=== PATIENT | female | born 1990 ===

== ENCOUNTER 2017-10-04 20:19 | Emergency (ER) | payer OTHER ==
[2017-10-04 21:35] VITALS: BP 117/70; PULSE 90; RESP 16; TEMP 99; O2SAT 100
[2017-10-04] MEDS ORDERED: Sodium Chloride 0.9% 1,000 ML IV STA (22:15)
--- NOTE | 2017-10-04 22:17 | ED PDOC ---
HPI: Female Pain Time Seen by Provider: 10/04/17 21:50 Chief Complaint (Nursing): Female Genitourinary Chief Complaint (Provider): Pelvic pain History Per: Patient History/Exam Limitations: no limitations Onset/Duration Of Symptoms: Days (2) Current Symptoms Are (Timing): Still Present Additional Complaint(s): Pt. with pelvic pain for 2 days. No vaginal bleeding, weakness, headaches, dizziness, back pain, dysuria. Preg. Past Medical History Reviewed: Nursing Documentation, Vital Signs Vital Signs: Last Vital Signs Temp 99.0 F 10/04/17 21:32 Pulse 90 10/04/17 21:32 Resp 16 10/04/17 21:32 BP 117/70 10/04/17 21:32 Pulse Ox 100 10/04/17 21:32 - Medical History PMH: No Chronic Diseases - Surgical History Surgical History: No Surg Hx - Family History Family History: States: Unknown Family Hx - Allergies Allergies/Adverse Reactions: Allergies Allergy/AdvReac Type Severity Reaction Status Date / Time latex Allergy RASH Verified 10/04/17 21:32 Review of Systems ROS Statement: Except As Marked, All Systems Reviewed And Found Negative Genitourinary Female: Positive for: Pelvic Pain Physical Exam - Reviewed Nursing Documentation Reviewed: Yes Vital Signs Reviewed: Yes - Physical Exam Appears: Positive for: Non-toxic, No Acute Distress Head Exam: Positive for: ATRAUMATIC, NORMAL INSPECTION, NORMOCEPHALIC Skin: Positive for: Normal Color, Warm, DRY Eye Exam: Positive for: EOMI, Normal appearance, PERRL ENT: Positive for: Normal ENT Inspection Neck: Positive for: Normal, Painless ROM Cardiovascular/Chest: Positive for: Regular Rate, Rhythm Respiratory: Positive for: CNT, Normal Breath Sounds Gastrointestinal/Abdominal: Positive for: Bowel Sounds, Soft, Tenderness (mild tender across lower pelvic) Back: Positive for: Normal Inspection Extremity: Positive for: Normal ROM Neurologic/Psych: Positive for: Alert, Oriented - Laboratory Results Result Diagrams: 10/04/17 22:35 10/04/17 22:35 - ECG O2 Sat by Pulse Oximetry: 100 Pulse Ox Interpretation: Normal - CT Scan/US US Other Rad Studies (CT/US): Read By Radiologist Other Rad Interpretation: SLIUP - Progress ED Course And Treament: 2315: Stable. AAOx3. Pain free. Tolerated PO. Fu with pcp. Disposition - Clinical Impression Clinical Impression: Threatened - Patient ED Disposition Is Patient to be Admitted: No Counseled Patient/Family Regarding: Studies Performed, Diagnosis, Need For Followup - Disposition [facility] - [facility]17 Disposition: Routine/Home Disposition Time: 23:16 Condition: STABLE Additional Instructions: Return if not better in 3 days. Instructions: Threatened Miscarriage Forms: [employer] (Ukrainian)
[2017-10-04 22:38] LABS: BASO # 0.1 K/uL (0.0-0.2); BASO % 0.5 % (0.0-2.0); EOS # 0.1 K/uL (0.0-0.7); EOS % 0.5 % (0.0-4.0); HEMOGLOBIN 12.5 g/dL (12.0-16.0); LYMPH # 1.9 K/uL (1.0-4.3); LYMPH % 19.8 % (20.0-40.0); MEAN CELL VOLUME 89.7 fl (81.0-99.0); MEAN CORPUSCULAR HEMOGLOBIN 29.5 pg (27.0-31.0); MEAN CORPUSCULAR HGB CONC 32.9 g/dL (33.0-37.0); MEAN PLATELET VOLUME 9.6 fl (7.2-11.7); MONO # 0.7 K/uL (0.0-0.8); MONO % 6.9 % (0.0-10.0); NEUT # 6.9 K/uL (1.8-7.0); NEUT % 72.3 % (50.0-75.0); NRBC % 0.1 % (0.0-0.0); RBC 4.24 Mil/uL (3.80-5.20); RED CELL DISTRIBUTION WIDTH 14.2 % (11.5-14.5); WHITE BLOOD COUNT 9.6 K/uL (4.8-10.8)
[2017-10-04 22:48] LABS: ALB/GLOB RATIO 1.1 (1.0-2.1); ALBUMIN 3.6 g/dL (3.5-5.0); ALT/SGPT 30 U/L (9-52); AST/SGOT 18 U/L (14-36); BLOOD UREA NITROGEN 12 mg/dl (7-17); GFR AFRICAN-AMERICAN > 60; GFR NON-AFRICAN AMERICAN > 60
--- NOTE | 2017-10-05 00:07 | US ---
EXAM: US First Trimester, Transabdominal CLINICAL HISTORY: 27 years old, female; Pain; Other: Abd pain; Gestational age or lmp: 07/09/17; ; Additional info: Preg and pain TECHNIQUE: Real-time transabdominal obstetrical ultrasound of the maternal pelvis and a first trimester with image documentation. COMPARISON: No relevant prior studies available. FINDINGS: Gestation: Single live intrauterine gestation. heart rate of 167 beats per minute. [place]-rump length of 5.4 cm, correlating with gestational age of 12 weeks 0 days. Uterus/cervix: No subchorionic hemorrhage. No cervical dilatation or effacement. Ovaries: RIGHT ovary: Not visualized. LEFT ovary: Normal. No adnexal masses. Free fluid: No significant free fluid. IMPRESSION: 1. Single live intrauterine gestation.
== END 2017-10-05 00:46 | disposition home or self-care (01) ==
LOC: H.ER 20:19
DX: O20.0 Threatened abortion (principal)
CPT/HCPCS: 76815; 80053; 81025; 84702; 85025; 86850; 86900; 96360; 99282; J7040

== ENCOUNTER 2018-02-01 14:18 | Emergency (ER) | payer MEDICAID ==
[2018-02-01 14:26] VITALS: O2SAT 98
[2018-02-01 14:27] VITALS: BMI 28.3
--- NOTE | 2018-02-01 14:52 | ED PDOC ---
HPI: Skin/Bite Injury Time Seen by Provider: 02/01/18 14:35 Chief Complaint (Nursing): Bite Chief Complaint (Provider): Bite History Per: Patient History/Exam Limitations: no limitations Onset/Duration Of Symptoms: Days (x2) Current Symptoms Are (Timing): Still Present Additional Complaint(s): 27 year old female, currently 28 weeks , presents to the emergency department for an evaluation of a cat bite to her right hand, onset 2 days ago. Patient was evaluated at her PSYCHOLOGIST RESEARCH [facility]ISTANT ([facility]), prior to arrival, whom feels that wound is not infected but recommended ED visit to confirm. Patient denies any fever, chills, pain or further complaints. PSYCHOLOGIST RESEARCH ASSISTANT: Hawa Hernandez MD Past Medical History Reviewed: Historical Data, Nursing Documentation, Vital Signs Vital Signs: Last Vital Signs Temp 97.1 F L 02/01/18 14:24 Pulse 90 02/01/18 14:24 Resp BP 101/62 02/01/18 14:24 Pulse Ox 98 02/01/18 16:10 - Medical History PMH: No Chronic Diseases - Surgical History Surgical History: No Surg Hx - Family History Family History: States: Unknown Family Hx - Home Medications Home Medications: Ambulatory Orders Medication Instructions Recorded Amoxicillin/Clavulanate [Augmentin 1 tab PO BID #20 tab 02/01/18 875 MG-125 MG] - Allergies Allergies/Adverse Reactions: Allergies Allergy/AdvReac Type Severity Reaction Status Date / Time latex Allergy RASH Verified 02/01/18 14:26 Review of Systems ROS Statement: Except As Marked, All Systems Reviewed And Found Negative Constitutional: Negative for: Fever, Chills Musculoskeletal: Positive for: Other (right hand bite jonathan). Negative for: Hand Pain (right) Physical Exam - Reviewed Nursing Documentation Reviewed: Yes Vital Signs Reviewed: Yes - Physical Exam Appears: Positive for: Well, Non-toxic, No Acute Distress Head Exam: Positive for: ATRAUMATIC, NORMAL INSPECTION, NORMOCEPHALIC Skin: Positive for: Normal Color. Negative for: Rash Eye Exam: Positive for: Normal appearance ENT: Positive for: Normal ENT Inspection Neck: Positive for: Normal Cardiovascular/Chest: Positive for: Regular Rate, Rhythm Respiratory: Positive for: Normal Breath Sounds. Negative for: Respiratory Distress Gastrointestinal/Abdominal: Positive for: Normal Exam, Soft, Other (gravid). Negative for: Tenderness Extremity: Positive for: Normal ROM (right wrist and digits), Other (4cm ecchymosis and [3] less than 1/2cm tiny linear abrasions to right posterior hand ). Negative for: Swelling (or surrounding erythema to right hand) Neurologic/Psych: Positive for: Alert (x3), Oriented. Negative for: Motor/ Sensory Deficits - ECG O2 Sat by Pulse Oximetry: 98 (RA) Pulse Ox Interpretation: Normal Medical Decision Making Medical Decision Making: Time: 1455 --Call made out to Dr. Hernandez to discuss Rabies vaccine. Recomended calling animal control and pharmacy to see if vaccine and immunoglobulin are safe in pregnacy. Discussed with Pharmacy - Cat C Discussed with Dr. Sifuentes. Pt made aware of risk of rabies and that rabies is fatal. Also discussed cat c medications and vaccination with patient. Pt understands risk/benefit of vaccine and does not want the vaccine at this time. Scribe Attestation: Documented by Zari Wharton, acting as a scribe for Amy Arthur Pa-C. Provider Scribe Attestation: All medical record entries made by the Scribe were at my direction and personally dictated by me. I have reviewed the chart and agree that the record accurately reflects my personal performance of the history, physical exam, medical decision making, and the department course for this patient. I have also personally directed, reviewed, and agree with the discharge instructions and disposition. Disposition - Clinical Impression Clinical Impression: Animal bite wound - Patient ED Disposition Is Patient to be Admitted: No Counseled Patient/Family Regarding: Diagnosis, Need For Followup, Rx Given - Disposition Disposition: Routine/Home Disposition Time: 16:30 Condition: STABLE Prescriptions: Amoxicillin/Clavulanate [Augmentin 875 MG-125 MG] 1 tab PO BID #20 tab Instructions: Animal Bites (DC) Forms: [employer] (Mongolian)
[2018-02-01 18:57] VITALS: BP 120/70; PULSE 88; RESP 20; TEMP 98
== END 2018-02-01 16:32 | disposition home or self-care (01) ==
LOC: H.ER 14:18
DX: S61.451A Open bite of right hand, initial encounter (principal); W55.01XA Bitten by cat, initial encounter; Y92.89 Other specified places as the place of occurrence of the external cause; Z3A.28 28 weeks gestation of pregnancy

== ENCOUNTER 2018-04-07 21:34 | Emergency (ER) | payer MEDICAID ==
[2018-04-07 22:00] VITALS: BMI 29.9
--- NOTE | 2018-04-07 22:25 | OBHP ---
Datetime: 04/07/2018 22:12 IP Adm Impression: Term, intrauterine ; No Active Labor IP Admit Plan: Observation/Evaluation; Discharge home Admit Comment, IP Provider: 27yo at 37w4d reports here today c/o pelvic cramps which started @ 3pm. She denies any VB or LOF. has vandana uncomplicated. She reports good movements. PMHx: Nil of note O: afebrile Heart: RRR Chest: CTA B/L Renal anles: Nontender B/L FHR: category 1 TOCO: None SVE: Closed/ posterior, vertex felt Assessment: IUP at 37wks No active labor NST- Reactive. Plan Discharge Home Labor instructions given Follow up with OB clinic within 1 week Pelvic Type - PN: Adequate Extremities - PN: Normal Abdomen - PN: Normal Back - PN: Normal Breast - PN: Normal Lungs - PN: Normal Heart - PN: Normal Thyroid - PN: Normal Neurologic - PN: Normal HEENT - PN: Normal General - PN: Normal Presentation-Admit: Vertex FHR - Baseline A Provider: 130 Membranes, Provider: Intact Contraction Comments Provider: none Gestation - Est Wks by US: 37.4 EGA AdmitDate IP: 37.4 IP Chief Complaint: Maternal discomfort NICHD Variability Prov Fetus A: Moderate 6-25bpm NICHD Accel Fetus A IP Provider: 15X15 FHR Category Provider Fetus A: Category I NICHD Decel Fetus A IP Provider: None Dilatation, Provider: 0 Effacement, Provider: 10 Station, Provider: -3 Genitourinary Exam: Normal DTRs - PN: Normal
[2018-04-07] MEDS ORDERED: Lactated Ringer's 1,000 ML IV ONE (22:54)
[2018-04-07 23:54] LABS: BASO % 0.3 % (0.0-2.0); EOS % 0.1 % (0.0-4.0); HEMOGLOBIN 11.5 g/dL (12.0-16.0); LYMPH # 1.4 K/uL (1.0-4.3); LYMPH % 9.4 % (20.0-40.0); MEAN CELL VOLUME 85.2 fl (81.0-99.0); MEAN CORPUSCULAR HEMOGLOBIN 27.6 pg (27.0-31.0); MEAN CORPUSCULAR HGB CONC 32.4 g/dL (33.0-37.0); MEAN PLATELET VOLUME 10.9 fl (7.2-11.7); MONO % 6.9 % (0.0-10.0); NEUT # 12.2 K/uL (1.8-7.0); NEUT % 83.3 % (50.0-75.0); NRBC % 0.1 % (0.0-0.0); PLATELET COUNT 222 K/uL (130-400); RBC 4.18 Mil/uL (3.80-5.20); RED CELL DISTRIBUTION WIDTH 13.4 % (11.5-14.5); WHITE BLOOD COUNT 14.6 K/uL (4.8-10.8)
[2018-04-08 00:04] LABS: ALBUMIN 3.5 g/dL (3.5-5.0); AMYLASE 93 U/L (30-110); CALCIUM 8.8 mg/dL (8.4-10.2); GFR NON-AFRICAN AMERICAN > 60; LIPASE 76 U/L (23-300)
[2018-04-08 00:09] LABS: ALT/SGPT 22 U/L (9-52); AST/SGOT 34 U/L (14-36); BLOOD UREA NITROGEN 10 mg/dl (7-17)
[2018-04-08 00:53] LABS: BASOPHIL 1 % (0-2); LYMPHOCYTE 12 % (20-50); MONOCYTE 2 % (0-10); NEUTROPHIL 85 % (42-75); PLATELET ESTIMATE NORMAL (NORMAL); TOTAL CELLS COUNTED 100
[2018-04-08 05:38] VITALS: BP 96/54; PULSE 90; O2SAT 100
== END 2018-04-08 01:30 | disposition home or self-care (01) ==
LOC: H.EROB2 21:34
DX: O26.93 Pregnancy related conditions, unspecified, third trimester (principal); R10.2 Pelvic and perineal pain; O47.1 False labor at or after 37 completed weeks of gestation; Z3A.37 37 weeks gestation of pregnancy
CPT/HCPCS: 80053; 82150; 83690; 85025; 96361; 96374; 99283; J2405; J7120

== ENCOUNTER 2018-04-24 14:50 | Emergency (ER) | payer MEDICAID ==
[2018-04-24 20:17] VITALS: BP 112/73; PULSE 96; RESP 18; TEMP 98.4; O2SAT 99
== END 2018-04-24 16:00 | disposition home or self-care (01) ==
LOC: H.EROB2 14:50
DX: O76 Abnormality in fetal heart rate and rhythm complicating labor and delivery (principal); Z3A.40 40 weeks gestation of pregnancy; O48.0 Post-term pregnancy

== ENCOUNTER 2018-04-29 18:48 | Inpatient (IN) | payer MEDICAID ==
[2018-04-29] MEDS ORDERED: Nalbuphine HCL 10 mg/ml Ampule IVP PRN (19:43)
--- NOTE | 2018-04-29 19:53 | OBADHP ---
Datetime: 04/29/2018 19:48 Admit Comment, IP Provider: Patient is a @ 39.5 wks, SROM at 3 cm. Patient denies antepartum is sues, no medical problems, no previous surgeries, no allergies. VE= grossly ruptured, /-3 FHR= 135 mod yadira,+accels, no decels TOCO = ctxning q 5 mins A/P 1. patient grossly ruptured, 3 cm. Admit pt to unit, IVF, CBC, type and screen 2. Cytotec for further cervical ripening 3. CEFM and TOCO Pelvic Type - PN: Adequate Extremities - PN: Normal Abdomen - PN: Normal Back - PN: Normal Breast - PN: Normal Lungs - PN: Normal Heart - PN: Normal Thyroid - PN: Normal Neurologic - PN: Normal HEENT - PN: Normal General - PN: Normal FHR - Baseline A Provider: 135 Membranes, Provider: Ruptured Contraction Comments Provider: q 5 mins Vital Signs Provider: Reviewed IP Chief Complaint: Uterine contractions; Suspected ruptured membranes NICHD Variability Prov Fetus A: Moderate 6-25bpm NICHD Decel Fetus A IP Provider: Early Dilatation, Provider: 3 Effacement, Provider: 50 Station, Provider: -3 Genitourinary Exam: Normal DTRs - PN: Normal EGA AdmitDate IP: 39.5 IP Adm Impression: Term, intrauterine IP Admit Plan: Admit to unit; Initiate labor protocol Datetime: 04/29/2018 12:55 Gestation - Est Wks by US: 40.5 Datetime: 04/24/2018 15:00 IP Hx Assessment: The History has been Reviewed and is Current Datetime: 04/07/2018 22:12 Presentation-Admit: Vertex NICHD Accel Fetus A IP Provider: 15X15 FHR Category Provider Fetus A: Category I
[2018-04-29 20:23] LABS: BASO % 0.4 % (0.0-2.0); EOS % 0.3 % (0.0-4.0); HEMOGLOBIN 12.1 g/dL (12.0-16.0); LYMPH # 1.6 K/uL (1.0-4.3); MEAN CELL VOLUME 83.5 fl (81.0-99.0); MEAN CORPUSCULAR HGB CONC 33.6 g/dL (33.0-37.0); MONO # 0.7 K/uL (0.0-0.8); MONO % 6.8 % (0.0-10.0); NEUT % 77.5 % (50.0-75.0); NRBC % 0.1 % (0.0-0.0); RBC 4.32 Mil/uL (3.80-5.20); RED CELL DISTRIBUTION WIDTH 14.4 % (11.5-14.5); WHITE BLOOD COUNT 10.4 K/uL (4.8-10.8)
[2018-04-29] MEDS: Lactated Ringer's 1,000 ML IV SCH ×2 (22:30→23:35)
[2018-04-29 23:15] VITALS: O2SAT 100
[2018-04-30] MEDS: Lactated Ringer's 1,000 ML IV SCH ×2 (01:55→08:00)
[2018-04-30] MEDS ORDERED: Fentanyl/Bupivacaine HCl 250 ML EPI ONE (03:38)
--- NOTE | 2018-04-30 04:11 | OBPN ---
Datetime: 04/30/2018 02:08 IP Progress Impression: Normal progression of labor IP Informed Consent Obtain: Vaginal Delivery IP Procedures: Sterile Vag Exam IP Progress Plan: Continue present management Membranes, Provider: Ruptured FHR - Baseline A Provider: 130 IP Progress Note Comment: Patient evalauted, feeling more uncomfortable. Parts of tracing not recording, FSE placed. FSE not recording well so external FH monitor then placed. VE=6/80/-1. INC=017 mod yadira, +accels, +early decelerations. Terbutaline given because some of decelerations were prolong ed and to allow for recovery. Pt placed on lateral positioning and O2 non-rebreather. Pt reques ting epidural for pain. Will hold pitocin for augmentation for now and re-evaluate Vital Signs Provider: Reviewed; Within Normal Limits NICHD Variability Prov Fetus A: Moderate 6-25bpm Dilatation, Provider: 6 Effacement, Provider: 80 Station, Provider: -1 NICHD Decel Fetus A IP Provider: Early Datetime: 04/29/2018 19:48 Contraction Comments Provider: q 5 mins Datetime: 04/29/2018 12:55 Gestation - Est Wks by US: 40.5 Datetime: 04/07/2018 22:12 Presentation-Admit: Vertex NICHD Accel Fetus A IP Provider: 15X15 FHR Category Provider Fetus A: Category I
[2018-04-30] MEDS: Oxytocin 30 units/LR 500ML 30 UNITS/500 ML BAG IV ONE ×2 (05:00→07:55)
--- NOTE | 2018-04-30 08:01 | OBDS ---
MATERNAL INFORMATION Provider Comments: of live female over intact perineum in [place] presentation, followed by shoulders and rest of , mouth and nose suctioned on mother's chest, cord clamped and cut, infan t handed off to waiting user experience team lead, cord blood obtained, fundus firm, placenta delivered spontaneou sly, right labial abrasion reparied with 3-0 vicryl rapide LABOR SUMMARY EDC: 04/25/2018 00:00 No. Babies in Womb: 1 LABOR INFORMATION Cervical Ripening Agents: Cytotec @ 50 mcg Group B Beta Strep: Negative MEMBRANES Membranes Rupture Method: Spontaneous Rupture of Membranes: 04/29/2018 17:30 Amniotic Fluid Color: Clear Amniotic Fluid Amount: Moderate
[2018-04-30] MEDS ORDERED: Benzocaine/Menthol SPRAY TOP PRN ×2 (08:14→10:59)
[2018-04-30] MEDS ORDERED: Oxycodone/Acetaminophen 5/325 mg Tab PO PRN (08:14)
[2018-04-30] MEDS ORDERED: Nalbuphine 20 mg/ml Inj (1 ml) IVP PRN (10:59)
[2018-05-01 06:54] LABS: BASO % 0.1 % (0.0-2.0); EOS # 0.1 K/uL (0.0-0.7); EOS % 0.5 % (0.0-4.0); HEMOGLOBIN 11.2 g/dL (12.0-16.0); LYMPH # 2.4 K/uL (1.0-4.3); LYMPH % 14.8 % (20.0-40.0); MEAN CELL VOLUME 83.2 fl (81.0-99.0); MEAN CORPUSCULAR HEMOGLOBIN 27.8 pg (27.0-31.0); MEAN CORPUSCULAR HGB CONC 33.4 g/dL (33.0-37.0); MEAN PLATELET VOLUME 10.5 fl (7.2-11.7); MONO # 0.9 K/uL (0.0-0.8); MONO % 5.8 % (0.0-10.0); NEUT # 12.6 K/uL (1.8-7.0); NEUT % 78.8 % (50.0-75.0); RBC 4.02 Mil/uL (3.80-5.20); RED CELL DISTRIBUTION WIDTH 14.4 % (11.5-14.5)
[2018-05-01] MEDS: Oxycodone/Acetaminophen 5/325 mg Tab PO PRN ×2 (09:19→16:34)
--- NOTE | 2018-05-01 10:49 | OBPPN ---
Datetime: 05/01/2018 08:34 PP Pain Prov: Within normal limits PP Nausea Prov: Denies PP Flatus Prov: Yes PP BM Prov: No PP Breasts Prov: Not Done PP Heart Prov: Normal PP Lungs Prov: Normal PP Abdomen/Uterus Prov: Normal PP Lochia Prov: Normal PP Vulva/Perineum Prov: Not Done PP CVA Tenderness Prov: Normal PP Extremities Prov: Normal PP C/S Incision Prov: Not Applicable PP Progress Prov: Normal PP Impression Prov: Normal progression PP Plan Prov: Continue present management PP Progress Note Prov: Patient seen and evaluated at bedside in morning. She is now, S/P NSV D on 05/01, PPD 1. Patient reports minimal abdominal pain which is well controlled with ibuprofen. Loc hia like menses. without difficulties. Reports passing flatus and but no BM yet. Tolera ting regular diet well PO without any N/V, ambulating to bathroom w/o any difficulties. VSS, afebrile GEN: Well, No acute distress RESP: CTA B/L CV: RRR, S1S2 present, no murmurs ABD: soft, nontender, uterus firm below umbilicus LE: No pedal edema, calf tenderness A/P 27 y/o now, S/P on 05/01, PPD 1 with normal post- progression. -Encourage ambulation -Encourage -PNV 1 tab PO daily -Ibuprofen 600mg 1 tab Q6h prn for mild-mod pain -Anticipated D/C home 05/02/18 Patient seen and evaluated by me this am. Agree with above resident note. Encouarged ambulation an d encouraged . --Dr. Turner
--- NOTE | 2018-05-02 10:26 | OBPPN ---
Datetime: 05/02/2018 06:34 PP Pain Prov: Within normal limits PP Nausea Prov: Denies PP Flatus Prov: Yes PP BM Prov: No PP Breasts Prov: Not Done PP Heart Prov: Normal PP Lungs Prov: Normal PP Abdomen/Uterus Prov: Normal PP Lochia Prov: Normal PP Vulva/Perineum Prov: Not Done PP CVA Tenderness Prov: Normal PP Extremities Prov: Normal PP C/S Incision Prov: Not Applicable PP Progress Prov: Normal PP Impression Prov: Normal progression PP Plan Prov: Continue present management PP Progress Note Prov: Patient seen and evaluated at bedside on PPD2. Abdominal pain well controlled with ibuprofen. Lochia like menses. without difficulties. Reports passing flatus and b ut no BM yet. Tolerating regular diet well PO Denies F/C, N/V, ambulating to bathroom w/o any difficu lties and voiding well. VSS, afebrile GEN: NAD RESP: CTA B/L CV: RRR, S1S2 present ABD: soft, nontender, uterus firm below umbilicus LE: No pedal edema, calf tenderness Neuro AAO x 3 A/P 27 y/o now, S/P on 05/01, PPD 2 with normal post- progression. -Encourage ambulation and -Continue multivitamin 1 tab PO daily -Ibuprofen 600mg 1 tab Q6h prn for mild-mod pain -Anticipated D/C home today 05/02/18 Mike Dempsey, PGY1 Patient seen and examined by me today. Agree with above note. Patient for discharge home today for follow in 6 weeks and baby to follow up at [facility] within 1 week. encouarged and continue Motrin for pain. --Dr. Turner Vital Signs Provider PP: Reviewed; Within Normal Limits
--- NOTE | 2018-05-02 10:29 | OBDCSUM ---
Datetime: 05/02/2018 06:24 Discharged to, Provider: Home Follow up at, Provider: Dr. Hernandez Disch Instr Activity: Normal activity Disch Instr Diet: Regular Discharge Instructions, Provider: Routine instructions given Discharge Diagnosis, Provider: Term Delivered Follow up in weeks, Provider: 4-6 wks Disch Referrals: None Contraception discussed, Prov: Yes Disch Activity Restrictions: Nothing in vagina - Herreid, tampons, douche Discharge Comment, Provider: EGA: 40.5 wks Diagnosis: risk factors: None : 04/30/18 @ 7:49, baby girl, Weight: 2740, 9. Post- Summary: No complications during post- period. Lochia like menses. She is passi ng flatus but no BM yet. She is tolerating regular diet, Fundus firm below umbilicus, able to ambulat e w/o any difficulties, voiding well, denies fever, chills, LUND, SOB, N/V, calf pain. CBC post-: 11.2/33.4 Discharge Instructions: Encourage PNV 1 tab po daily Ibuprofen 600mg 1 tab prn for mild-mod pain ER precautions: If excessive bleeding or fever without relief from medication, go to ED PT was urged if feeling sad, mood swing, depression, neglect of baby, suicidal thoughts, homicidal thought should go to ER or call 911 for help Follow up with [facility] in 4-6 wks for check up Case discussed with attending Mike Dempsey, PGY1 Agree with above discharge beatrice --Dr. Long Contraception after Delivery: IUD
[2018-05-03 01:40] VITALS: BP 106/69; PULSE 75; RESP 20; TEMP 98.3
== END 2018-05-02 15:00 | disposition home or self-care (01) | DRG 373 ==
LOC: H.EROB2 18:48 → H.L&D 19:41 → H.OB/GYN 04-30 10:59
PROVIDERS: ADMIT Obstetrics & Gynecology; ATTEND Obstetrics & Gynecology
PROC: 4A1HXCZ Monitoring of Products of Conception, Cardiac Rate, External Approach (ICD-10-PCS; 2018-04-29)
PROC: 10E0XZZ Delivery of Products of Conception, External Approach (ICD-10-PCS; principal; 2018-04-30)
PROC: 0HQ9XZZ Repair Perineum Skin, External Approach (ICD-10-PCS; 2018-04-30)
DX: O48.0 Post-term pregnancy (principal); O76 Abnormality in fetal heart rate and rhythm complicating labor and delivery; O70.0 First degree perineal laceration during delivery; Z3A.40 40 weeks gestation of pregnancy; Z37.0 Single live birth